=== PATIENT | male | born 1965 ===

== ENCOUNTER 2021-01-19 12:26 | Emergency (ER) | payer SELFPAY ==
[2021-01-19] MEDS ORDERED: ASPIRIN 325 MG TAB PO ONE (12:35)
--- NOTE | 2021-01-19 12:35 | Event Note ---
ED Screening Note ED Screening Note: Language interpretation by Ms. 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 Further treatment and workup at subsequent clinical providers discretion. Patient/guardian urged not to elope from the ED as their condition may be serious if not clinically assessed and managed. Initial orders include: CP protocol
[2021-01-19 12:37] VITALS: BP 161/88
--- NOTE | 2021-01-19 13:15 | XRay Report ---
CHEST 2 VIEWS INDICATION / CLINICAL INFORMATION: Chest Pain. COMPARISON: None available. FINDINGS: SUPPORT DEVICES: None. HEART / MEDIASTINUM: No significant abnormality. Sternotomy and CABG. LUNGS / PLEURA: No significant pulmonary or pleural abnormality. No pneumothorax. ADDITIONAL FINDINGS: No significant additional findings. IMPRESSION: 1. No acute findings. Signer Name: John Shin MD Signed: 01/19/2021 1:10 PM Workstation Name: [id number]
[2021-01-19 13:40] LABS: Basophils % (Auto) 0.5 % (0.0-1.8); Eosinophils # (Auto) 0.1 K/mm3 (0.0-0.4); Eosinophils % (Auto) 1.1 % (0.0-4.3); Hematocrit 51.3 % (35.5-45.6); Lymphocytes # (Auto) 1.9 K/mm3 (1.2-5.4); Lymphocytes % (Auto) 31.1 % (13.4-35.0); Mean Corpuscular HGB Conc 35 % (32-34); Mean Corpuscular Volume 98 fl (84-94); Monocytes # (Auto) 0.4 K/mm3 (0.0-0.8); Monocytes % (Auto) 7.1 % (0.0-7.3); Platelet Count 197 K/mm3 (140-440); Red Blood Count 5.23 M/mm3 (3.65-5.03); Red Cell Distribution Width 12.6 % (13.2-15.2)
[2021-01-19 14:03] LABS: Alanine Aminotransferase 95 units/L (7-56); Albumin 4.3 g/dL (3.9-5); Blood Urea Nitrogen 10 mg/dL (9-20); Calcium 9.8 mg/dL (8.4-10.2); Hemolysis Index 22
[2021-01-19 14:14] LABS: BUN/Creatinine Ratio 14
--- NOTE | 2021-01-20 00:36 | Emergency Department Report ---
ED Chest Pain HPI - General Chief Complaint: Chest Pain Stated Complaint: PAIN IN CHEST/DIZZY Time Seen by Provider: 01/19/21 12:33 Source: patient Mode of arrival: Ambulatory Limitations: Language Barrier - History of Present Illness Initial Comments: 55-year-old male with past medical history for CAD/cardiac bypass presents emerged department complaining of a 2 to 3-day history of chest pain which appears to his when he massages his left chest or the area over the pain. Pain appears to worsen with range of motion. But no fever, chills, sweats. Hemoptysis no hematemesis hematochezia, no nausea, no vomiting. He does admit to smoking. MD Complaint: chest pain -: Gradual Pain Location: left chest Severity: mild Quality: aching, dull - Related Data Allergies Allergy/AdvReac Type Severity Reaction Status Date / Time No Known Allergies Allergy Unverified 01/19/21 12:41 Heart Score - HEART Score History: Moderately suspicious EKG: Normal Age: 45-65 Risk factors: 1-2 risk factors Troponin: < normal limit HEART Score: 3 - EKG Read Time Time EKG Completed: 12:40 EKG Read Time: 12:44 ED Review of Systems ROS: Stated complaint: PAIN IN CHEST/DIZZY Other details as noted in HPI Comment: All other systems reviewed and negative ED Past Medical Hx - Past Medical History Hx Heart Attack/AMI: Yes - Surgical History Hx Open Heart Surgery: Yes - Social History Smoking Status: Never Smoker Substance Use Type: None ED Physical Exam - General Limitations: Language Barrier General appearance: alert, in no apparent distress - Head Head exam: Present: atraumatic, normocephalic - Eye Eye exam: Present: normal appearance, PERRL, EOMI Pupils: Present: normal accommodation - ENT ENT exam: Present: mucous membranes moist - Neck Neck exam: Present: normal inspection - Respiratory Respiratory exam: Present: normal lung sounds bilaterally, chest wall tenderness (Tenderness in left upper chest with deep palpation but no subcutaneous emphysema. Hematomas.). Absent: respiratory distress - Cardiovascular Cardiovascular Exam: Present: regular rate, normal rhythm, other (Patient is cardiac bypass scar). Absent: systolic murmur, diastolic murmur, rubs, gallop - GI/Abdominal GI/Abdominal exam: Present: soft, normal bowel sounds - Rectal Rectal exam: Present: deferred - Extremities Exam Extremities exam: Present: normal inspection - Back Exam Back exam: Present: normal inspection - Neurological Exam Neurological exam: Present: alert, oriented X3 - Psychiatric Psychiatric exam: Present: normal affect, normal mood - Skin Skin exam: Present: warm, dry, intact, normal color. Absent: rash ED Course Vital Signs 01/19/21 12:35 Temperature 98.9 F Pulse Rate 95 H Respiratory 20 Rate Blood Pressure 161/88 O2 Sat by Pulse 96 Oximetry CASE score - Case Score Age > 65: (0) No Aspirin use within the Past 7 Days: (0) No 3 or more CAD Risk Factors: (0) No 2 or more Angina events in past 24 hrs: (0) No Known CAD with more than 50% Stenosis: (0) No Elevated Cardiac Markers: (0) No ST Deviation Greater than 0.5mm: (0) No CASE Score: 0 ED Medical Decision Making - Lab Data Result diagrams: 01/19/21 13:16 01/19/21 13:16 - EKG Data EKG shows normal: sinus rhythm - EKG Data Interpretation: normal EKG, nonspecific ST-T wave pipo - Radiology Data Radiology results: report reviewed [facility] [address] [place] [address] XRay Report Signed Patient: DEBI LAU MR#: [id number] : 1965 Acct:[id number] Age/Sex: 55 / M ADM Date: 01/19/21 Loc: ED Attending Dr: Ordering Physician: RIO MEJIA Date of Service: 01/19/21 Procedure(s): XR chest routine 2V Accession Number(s): [id number] cc: RIO MEJIA Fluoro Time In Minutes: CHEST 2 VIEWS INDICATION / CLINICAL INFORMATION: Chest Pain. COMPARISON: None available. FINDINGS: SUPPORT DEVICES: None. HEART / MEDIASTINUM: No significant abnormality. Sternotomy and CABG. LUNGS / PLEURA: No significant pulmonary or pleural abnormality. No pneumothorax. ADDITIONAL FINDINGS: No significant additional findings. IMPRESSION: 1. No acute findings. Signer Name: John Shin MD Signed: 01/19/2021 1:10 PM Workstation Name: [id number] Transcribed By: TL Dictated By: John Shin MD Electronically Authenticated By: John Shin MD Signed Date/Time: 01/19/21 1310 DD/ 1309 TD/TT: - Medical Decision Making The patient presented with chest pain of uncertain etiology. Based on their history, lab analysis, EKG (which showed no evidence of ischemia or infarction), and imaging, in addition to the patient's physical exam, I see no evidence at this time for a malignant etiology for the patient's chest pain. There is no acute evidence for pulmonary embolus, acute myocardial infarction, pneumothorax, esophageal rupture, cardiac tamponade, thoracic artery dissection, or any other emergent cardiac, pulmonary or aortic pathology at this time. Based on the nature and long duration of the patient's pain, paucity of EKG findings, and normal cardiac enzymatic blood analysis, acute coronary syndrome is exceedingly unlikely. It is highly likely that cardiac enzymes would be abnormal in chest pain of this duration if their chest pain was attributable to ACS. Patient has been in the emergency department for over 12hours with no significant changes to his symptoms is alert and oriented. No distress and chest pain is nearly resolved and reaggravated with palpation and range of motion.. This patient may require cardiac stress testing on an outpatient basis and arrangements for this may be made during their follow-up visit with their primary care physician. The patient understands that at this time there is no evidence for a more malignant underlying process, but the patient also understands that early in the process of an illness, an emergency department workup can be falsely reassuring. Routine discharge counseling was given to the patient and the patient understands that worsening, changing, or persistent symptoms should prompt an immediate call or follow up with their primary physician or the emergency department immediately. The importance of close follow up was also discussed with the patient. Critical care attestation.: If time is entered above; I have spent that time in minutes in the direct care of this critically ill patient, excluding procedure time. ED Disposition Clinical Impression: Chest pain in adult Disposition: 01 HOME / SELF CARE / HOMELESS Is pt being admited?: No Does the pt Need Aspirin: No Condition: Stable Instructions: Coronary Artery Disease, Male, Nonspecific Chest Pain, Adult, Physical Activity With Heart Disease, MUGA Scan, Angina Additional Instructions: You were evaluated emergency department today for chest pain. Your evaluation has shown no medicals conditions requiring emergent intervention at this time, however recommend that you follow-up with your primary care physician or your gift consultant soon as possible for further testing as an outpatient. Please schedule an appointment for follow-up with your primary care physician as soon as possible. Return to emergency department if you expands worsening uncontrolled chest pain, shortness of breath, lightheadedness, feeling faint, nausea, vomiting or any other concerning symptoms. Referrals: JAMIE MCKEON MD [Staff Physician] - 3-5 Days
--- NOTE | 2021-01-20 11:12 | Electrocardiograph Report ---
[facility] Test Date: 2021-01-19 Test Time: 12:40:31 Pat Name: DEBI LAU Department: Room: Gender: M Concrete Batcher: ANNELISE : 1965 Requested By: LAINA GRIFFITH Order Number: [id number] Reading MD: Will Erickson Measurements Intervals [place] Rate: 85 P: 70 [place]: 160 QRS: 3 QRSD: 88 T: 45 QT: 365 QTc: 435 Interpretive Statements Sinus rhythm No previous ECG available for comparison Electronically Signed On 01-20-2021 11:11:52 EDT by Will Erickson
== END 2021-01-20 01:00 | disposition home or self-care (01) ==
LOC: ED 12:26
DX: R07.9 Chest pain, unspecified (principal); I25.2 Old myocardial infarction; Z98.890 Other specified postprocedural states
CPT/HCPCS: 36415; 71046; 80053; 83690; 84484; 85025; 93005; 99284